=== PATIENT | male | born 1975 | race Caucasian/White ===

== ENCOUNTER 2018-03-03 16:57 | Emergency (ER) | payer OTHER ==
[~2018-03-03] VITALS: Ht 177.8 cm; Wt 90.7 kg
[2018-03-03] MEDS ORDERED: PREDNISOLO15 MG/5 M1 (17:20)
== END 2018-03-03 22:20 | disposition home or self-care (01) ==
LOC: ER 16:57
DX: J40 Bronchitis, not specified as acute or chronic (principal)